=== PATIENT | female | born 1995 | race Caucasian/White ===

== ENCOUNTER 2016-09-06 09:32 | Emergency (ER) | payer BC ==
[~2016-09-06] VITALS: Ht 162.6 cm; Wt 59.0 kg
[2016-09-06] MEDS ORDERED: GABAPENTIN300 MG ORAL (09:39)
[2016-09-06] MEDS ORDERED: BUPROPION XL300 MG ORAL (09:41)
[2016-09-06] MEDS ORDERED: NALTREXONE HCL50 MG PO (09:41)
[2016-09-06] MEDS ORDERED: PROZAC10 MG ORAL (09:41)
[2016-09-06] MEDS ORDERED: KLONOPIN0.5 MG ORAL (09:41)
[2016-09-06] MEDS ORDERED: Acetaminophen 500mg (ES) tab ORAL ONE ×2 (09:56→10:00)
[2016-09-06] MEDS ORDERED: ACETAMINOPHEN-1 EAC1 ORAL (10:05)
[2016-09-06] MEDS ORDERED: Silver Sulfadiazine Cream 25gm TOPIC ONE (10:15)
[2016-09-06 10:17] VITALS: BP 126/82
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
== END 2016-09-06 10:17 | disposition home or self-care (01) ==
LOC: EMR 09:51
DX: T20.10XA Burn of first degree of head, face, and neck, unspecified site, initial encounter (principal); X11.8XXA Contact with other hot tap-water, initial encounter; Y92.9 Unspecified place or not applicable
CPT/HCPCS: 99283